=== PATIENT | female | born 1975 | race Caucasian/White ===

== ENCOUNTER 2023-08-25 23:41 | Emergency (ER) | payer BC ==
[~2023-08-25] VITALS: Ht 165.1 cm; Wt 131.5 kg
[2023-08-26 00:55] VITALS: BP_SYST 138; PULSE 96; RESP 20; TEMP 98.4; O2SAT 98
[2023-08-26] MEDS ORDERED: VANCOMYCIN HCL 1000 MG/VIAL IV ONE (02:50)
[2023-08-26] MEDS: VANCOMYCIN HCL 1,000 MG in NS 250 ML IV ONE (02:52)
[2023-08-26] MEDS: MORPHINE 4 MG INJ. 4 MG/ML VIAL IVP ONE (03:02)
[2023-08-26] MEDS ORDERED: SULF1TAB48 PO (05:33)
[2023-08-26] MEDS ORDERED: NAPR-1172 PO (05:33)
[2023-08-26 05:45] VITALS: BP_SYST 110; PULSE 77; RESP 16; TEMP 97.8; O2SAT 97
== END 2023-08-26 05:45 | disposition home or self-care (01) ==
LOC: SED 23:41
DX: L03.116 Cellulitis of left lower limb (principal); I10 Essential (primary) hypertension; E78.5 Hyperlipidemia, unspecified; Z98.890 Other specified postprocedural states; Z79.899 Other long term (current) drug therapy; Z79.2 Long term (current) use of antibiotics
CPT/HCPCS: 99284; 87040; 36415; 96365; 96366; 96375; J3370; J2270